=== PATIENT | male | born 1995 | race African-American/Black ===

== ENCOUNTER 2019-06-07 01:51 | Emergency (ER) | payer SELFPAY ==
[~2019-06-07] VITALS: Ht 177.8 cm; Wt 72.0 kg
[2019-06-07] MEDS ORDERED: KETOROLAC 30MG/ML VIAL IV ONE (02:15)
[2019-06-07] MEDS ORDERED: LIDOCAINE 1%/EPI 1:100,000 10 ML VIAL IJ ONE (02:15)
[2019-06-07] MEDS ORDERED: TETANUS, DIPHTHERIA, PERTUSSIS VAC/PF 0.5ML (>7YR OLD) IM ONE (02:15)
[2019-06-07 02:29] LABS: BASOPHILS % 0.6 % (0.0-2.0); EOSINOPHILS % 1.6 % (0.0-5.0); HEMATOCRIT. 49.3 % (42.0-52.0); HEMOGLOBIN. 17.5 g/dL (14.0-18.0); LYMPHOCYTES % 27.9 % (20.0-50.0); MEAN CORPUSCULAR HEMOGLOBIN 31.8 pg (28.0-32.0); MEAN CORPUSCULAR VOLUME 89.4 fL (80.0-94.0); MEAN PLATELET VOLUME 8.5 fl (7.4-10.4); MONOCYTES % 10.1 % (2.0-8.0); NEUTROPHILS % 59.8 % (40.0-76.0); PLATELET 223 x1000/uL (130-400); RED BLOOD CELL COUNT 5.52 mill/uL (4.7-6.1); RED CELL DISTRIBUTION WIDTH 14.4 % (11.6-14.6)
[2019-06-07 02:36] LABS: CHLORIDE 106 mEq/L (98-107)
[2019-06-07 02:39] LABS: PARTIAL THROMBOPLASTIN TIME 27.4 sec (23.4-31.0); PROTHROMBIN TIME 10.5 sec (9.6-11.0)
[2019-06-07] MEDS ORDERED: IOHEXOL-300 100 ML BOTTLE ONE (03:11)
[2019-06-07] MEDS ORDERED: POTASSIUM CHLORIDE 20MEQ TABLET SR PO ONE (03:45)
[2019-06-07] MEDS ORDERED: BACITRACIN 15GM TUBE TOP SCH (06:15)
[2019-06-07] MEDS ORDERED: BACITRACIN ZINC OINT UDPKT TOP ONE (06:15)
[2019-06-07 06:27] VITALS: BP 130/85
== END 2019-06-07 06:48 | disposition home or self-care (01) ==
LOC: ER 01:51
DX: S11.91XA Laceration without foreign body of unspecified part of neck, initial encounter (principal); S51.812A Laceration without foreign body of left forearm, initial encounter; E87.6 Hypokalemia; R79.89 Other specified abnormal findings of blood chemistry; W01.0XXA Fall on same level from slipping, tripping and stumbling without subsequent striking against object, initial encounter; Y93.89 Activity, other specified; Y92.89 Other specified places as the place of occurrence of the external cause; Y99.8 Other external cause status
CPT/HCPCS: 12005; 36415; 70491; 71045; 73090; 80053; 85025; 85610; 85730; 86850; 86900; 86901; 90471; 90715; 93005; 96374; 99284; J1885; J3490; Q9967; Z7610